=== PATIENT | female | born 1955 | race Caucasian/White ===

== ENCOUNTER 2023-08-18 14:11 | Outpatient (CLI) | payer MEDICARE, BC, SELFPAY ==
--- OUTSIDE RECORDS SUMMARY | 2023-08-18 14:14 | XMS_ITS | Continuity of Care Document ---
Author Name Unknown Organization [facility] Address [address] [place] [id number] Phone Care Team Providers Care Oil Winterizer Name Role Phone Nito Izquierdo Unavailable Unavailable Allergies, Adverse Reactions, Alerts Substance Reaction Status Criticality pollen extracts Active No Informati on mold Active No Information Medications Medication Instructions Dosage Effective Dates (start - stop) Status Comments No Drug Therapy Prescribed Procedures Procedure Date Office/Outpatient Visit,[facility] 2021 Advance Directives Directive Yes / No Effective Date File Name No Information Encounters Encounter Description Practice Location Reason(s) For Visit Diagnoses Date Provider Providers Copied on Encounter Office/Outpati ent Visit,[facility] , [address], [place], [place], [id number], [place] tel:[phone] [facility] [place] Muscle weakness Kurt Beauchamp. [address], [id number], . tel:[phone] Referring Provider: Demian Bartholomew, [facility] [address], [address]. tel:[phone] Family History Family Member Type Diagnosis Age At Onset No Information Payers Payer name Insurance type Covered green party ID aMgan rooney(s) [facility] [id number] Medicare [employer] [id number] 1 Social History Type Description Quantity Date Captured Comments Alcohol Use Details Unknown Caffeine Use Details Unknown Tobacco Use Status Current non-smoker Smoking Status Never smoker Non-Smoking Tobacco Use Details : No Details Available : No Details Available Sex Female Vital Signs Date / Time: Height Weight BMI Pulse Rate Blood Pressure Temperature Respiratory Rate Body Surface Area Head Circumference Head Circ. Percentile Wt./Tonio. Percentile BMI percentile Pulse Ox Inhaled Ox 1:46 PM 66.00 in 71.214 kg (157.00 lbs) 25.3 4 kg/m eter (2) Chief Complaint And Reason For Visit No Information Reason For Referral Reason For Referral No Information History Of Present Illness Encounter Date Complaint History Of Prese nt Illness No Information Functional Status Date Functional Assessmen t No Information Medications Administered Medication Instructions Dosage Effective Dates (start - stop) Status Comments No Drug Therapy Prescribed Instructions Date Instruction Additional Infor mation No Information Assessments Type Assessment Date assessment Muscle weakness Patient Care Teams Name Effective Dates (start - stop) Status Members No Information
--- NOTE | 2023-08-18 14:30 | MR_ITS ---
[address] [address] Phone:?[phone] Fax:?[phone] Referring Physician Information: Wenceslao George M.D. [address] [facility] [address] Phone:?[phone] Fax:?[phone] Patient:?Theodore Scott D.O.B:?1955 Sex:?Female Phone:?[phone] [facility] MRN:?[id number] Exam Date:?08/18/2023 EXAM: MRI EXAMINATION OF THE LEFT SHOULDER CLINICAL INFORMATION: Left shoulder pain. No specific injury. No history of surgery to this area. Possible rotator cuff tear. TECHNICAL INFORMATION: Coronal STIR as well as axial, sagittal and coronal PD and T2-weighted images acquired. No prior studies for comparison. INTERPRETATION: Bones: There is no Hill-Sachs impaction deformity. Patchy osseous cystic changes involving the greater tuberosity. Rotator Cuff: Series 4 images 10 through 13 demonstrate a 1.2 cm AP by 1.8 cm mediolateral segment of irregular, moderate to high-grade tearing involving intrasubstance and deep surface fibers involving the central supraspinatus tendon insertion. The infraspinatus tendon is intact without tear or significant tendinopathy. The teres minor tendon is intact. The subscapularis tendon is intact. No appreciable rotator cuff muscle belly atrophy. Coracoacromial arch: There is no discrete subacromial osseous spur. The bony acromiohumeral interval is measuring 6 mm. There is no thickening identified of the coracoacromial ligament. Acromioclavicular joint: Mild to moderate AC joint DJD. No deformity of the underlying supraspinatus tendon. No appreciable fluid/edema signal within the subacromial/subdeltoid bursa areas. Biceps tendon: The long head biceps tendon is intact and nondisplaced from the bicipital groove. No evidence for a tendon tear or any appreciable changes of tendinopathy. There are 2 small loose bodies within the long head biceps tendon sheath. The larger of these measures 4 mm. Glenohumeral joint and labrum: There is a moderately large glenohumeral joint effusion. There are 2 loose bodies within the subscapularis recess area. The larger of these is measuring 1.1 cm. Chondromalacia with broad full-thickness cartilage loss involves the humeral head. Additional full-thickness and near full-thickness cartilage loss throughout the posterior two thirds of the glenoid. No discrete paralabral cyst is identified. CONCLUSION: 1. Glenohumeral joint osteoarthritis with broad full-thickness and near full- thickness cartilage loss. 2. There is a moderately large glenohumeral joint effusion with associated loose bodies. The largest loose body within the subscapularis recess area measures 1.1 cm. 3. There is a moderate-sized segment of irregular, moderate to high-grade intrasubstance and deep surface fiber partial tearing involving the central supraspinatus tendon insertion. 4. Mild to moderate AC joint DJD with mild narrowing of the acromiohumeral interval. No evidence for subacromial/subdeltoid bursitis. 5. Unremarkable and intact long head biceps tendon. KES Electronically signed on 08/18/2023 4:44:00 PM by Navid Chadwick M.D.
== END 2023-08-18 14:12 | disposition home or self-care (01) ==
LOC: MRI 14:13
PROVIDERS: PCP Nurse Practitioner Family; Visit Provider Orthopaedic Surgery
DX: M25.512 Pain in left shoulder (principal); M19.012 Primary osteoarthritis, left shoulder; M25.412 Effusion, left shoulder
CPT/HCPCS: 73221